=== PATIENT | male | born 1945 | race Caucasian/White ===

== ENCOUNTER 2018-09-28 10:42 | Observation (INO) | payer MEDICARE ==
[~2018-09-28] VITALS: Ht 175.3 cm; Wt 96.8 kg
[~2018-09-28 10:42] MED LIST: AMBIEN10 MG PO; ASPIRIN325 MG PO; ASPIRIN81 MG PO; CEFDINIR300 MG PO; CELEBREX200 MG PO; DIOVAN80 MG PO; LOSARTAN POTAS100 MG PO; MELOXICAM7.5 MG PO; RANOLAZINE PO; SIMVASTATIN PO; Z.0.LEVAQUIN500 MG PO; Z.0.PLAVIX75 MG PO; Z.1.METFORMIN HCL100 PO; [UNRECOGNIZED DRUG - OTHER] PO
[2018-09-28] MEDS ORDERED: METHYLPREDNISOLONE SOD SUCC 125 MG/2ML VIAL IV ONE (11:00)
[2018-09-28] MEDS ORDERED: ALBUTEROL/IPRATROPIUM 3 ML NEB NEB ONE (11:00)
[2018-09-28] MEDS ORDERED: ASPIRIN 325 MG TAB PO ONE (11:15)
[2018-09-28 11:18] LABS: BASOPHILS % 0.4 % (0.0-1.0); EOSINOPHILS # (AUTO) 0.1 (0.0-0.4); EOSINOPHILS % 1.2 % (0.0-6.0); HEMATOCRIT 36.3 % (38.2-49.6); HEMOGLOBIN 11.8 g/dL (14.0-18.0); LYMPHOCYTES # (AUTO) 1.6 (1.0-3.2); LYMPHOCYTES % 16.5 % (18.0-39.1); MEAN CORPUSCULAR HEMOGLOBIN 29.9 pg (28-32); MEAN CORPUSCULAR HGB CONC 32.5 g/dL (31-35); MEAN CORPUSCULAR VOLUME 92.1 fL (81-99); MONOCYTES # (AUTO) 0.8 (0.2-0.8); MONOCYTES % 8.5 % (4.4-11.3); NEUTROPHILS # (AUTO) 7.1 (2.1-6.9); PLATELET COUNT 242 x10e3/uL (140-360); RED BLOOD COUNT 3.94 x10e6/uL (4.3-5.7); RED CELL DISTRIBUTION WIDTH 12.9 % (11.7-14.4)
[2018-09-28] MEDS: NITROGLYCERIN 0.4 MG SUBL SL PRN ×2 (11:18→11:23)
[2018-09-28 11:30] LABS: INR 0.88; PROTHROMBIN TIME 12.8 seconds (11.9-14.5)
[2018-09-28 11:34] LABS: ALANINE AMINOTRANSFERASE 11 IU/L (0-55); ALBUMIN 3.9 g/dL (3.5-5.0); ALBUMIN/GLOBULIN RATIO 1.1 (0.8-2.0); ALKALINE PHOSPHATASE 61 IU/L (40-150); ANION GAP 13.9 mmol/L (8-16); BLOOD UREA NITROGEN 19 mg/dL (7-26); BUN/CREATININE RATIO 12 (6-25); CALCIUM 9.1 mg/dL (8.4-10.2); CARBON DIOXIDE 25 mmol/L (22-29); CHLORIDE 101 mmol/L (98-107); CREATINE KINASE 30 IU/L (30-200); CREATININE, SERUM 1.53 mg/dL (0.72-1.25); EST GLOMERULAR FILTRATION RATE 45 ML/MIN (60-); GLUCOSE 105 mg/dL (74-118); POTASSIUM 4.9 mmol/L (3.5-5.1); SODIUM 135 mmol/L (136-145)
--- NOTE | 2018-09-28 12:09 | Diagnostic Imaging Report ---
Examination: Single AP view of the chest. COMPARISON: AP chest 04/11/2014 INDICATION: Chest pain, shortness of breath, radiation to arm and neck for 2 days IMPRESSION: 1. Lines and Tubes: None 2. Lungs are grossly clear. No consolidation or effusion. 3. Cardiomediastinal silhouette is normal. Pulmonary vasculature is normal. 4. No acute bony abnormalities. Signed by: Dr. Vipin Phillips M.D. on 09/28/2018 12:06 PM
[2018-09-28] MEDS ORDERED: ALBUTEROL/IPRATROPIUM 3 ML NEB NEB PRN (15:30)
[2018-09-28] MEDS ORDERED: NITROGLYCERIN 0.4 MG SUBL SL PRN (15:30)
--- NOTE | 2018-09-28 16:09 | NUR ---
PT MOVED TO HOSP BED AT 1605
--- OUTSIDE RECORDS SUMMARY | 2018-09-28 16:38 | XMS REPORT ---
Author Author [facility] Address Unknown Phone Unavailable Care Team Providers Care Wood Model Maker Name Role Phone Sushil CALDWELL Unavailable Unavailable Problems This patient has no known problems. Allergies, Adverse Reactions, Alerts This patient has no known allergies or adverse reactions. Medications This patient has no known medications. Results Test Description Test Time Test Comments Text Results Atomic Results Result Comments CHEST SINGLE (PORTABLE) 2018-09-28 12:05:00 [place] [id number] Patient Name: JODEE DAY MR #: [id number] : 1945 Age/Sex: 73/M Req #: [id number] Adm Physician: Ordered by: BALJINDER HUMMEL PELLETISING EXTRUDER OPERATOR Report #: [id number] Location: ER Room/Bed: Procedure: [id number] DX/CHEST SINGLE (PORTABLE) Exam Date: 09/28/18 Exam Time: 1145 REPORT STATUS: Signed Examination: Single AP view of the chest. CHARLINE RISON: AP chest 04/11/2014 INDICATION: Chest pain, shortness of breath, radiation to arm and neck for 2 days IMPRESSION: 1. Lines and Tubes: None 2. Lungs are grossly clear. No consolidation or effusion. 3. Cardiomediastinal silhouette is normal. Pulmonary vasculature is normal. 4. No acute bony abnormalities. Signed by: Dr. Benito Phillips M.D. on 09/28/2018 12:06 PM Dictated By: BENITO PHILLIPS MD 05 Transcribed By: BAKARI on 09/28/181205 COPY TO: BALJINDER HUMMEL NP
[2018-09-28] MEDS ORDERED: ZOLPIDEM TARTRATE 10 MG TAB PO PRN (17:30)
[2018-09-28] MEDS ORDERED: HYDROCODONE/APAP 5MG-325MG TAB PO PRN (17:30)
[2018-09-28 17:42] LABS: AMYLASE 123 U/L (25-125); LIPASE 30 U/L (8-78)
[2018-09-28] MEDS ORDERED: METHYLPREDNISOLONE SOD SUCC 40 MG/ML VIAL IV SCH (18:00)
--- NOTE | 2018-09-28 19:34 | History and Physical ---
CHIEF COMPLAINT: Epigastric and chest pain. HISTORY OF PRESENT ILLNESS: The patient has a history of COPD and coronary artery disease. He had a cardiac catheterization with a stent placement about 2 years ago. He also takes Ranexa on a regular basis. He came to the emergency department complaining of intermittent left lower chest pain over the past 2 days. He notes it was relieved with sublingual nitroglycerin in the emergency department. He also notes some epigastric pain, but denies any nausea or vomiting. He denies any diarrhea. There is no fever. PAST SURGICAL HISTORY: 1. Status post knee replacement. 2. Status post hand surgery. 3. Status post coronary artery stent placement. PAST MEDICAL HISTORY: 1. History of COPD. 2. History of hypertension. 3. History of diabetes, does not require insulin. SOCIAL HISTORY: The patient quit smoking. He is not an active drinker. FAMILY HISTORY: Family history is significant for hypertension and diabetes. REVIEW OF SYSTEMS: The patient has no history of fevers. He is not having any headache. He has no neck pain. He does note some intermittent chest pain. He denies dyspnea. He has no cough. He does have some abdominal pain. There is no nausea or vomiting. There is no leg edema. He has no focal neurological complaints. PHYSICAL EXAMINATION: VITAL SIGNS: The patient is afebrile. The blood pressure is 141/73 and the pulse is 86. HEENT: Shows no facial swelling or erythema. The nasal mucosa is normal. The oropharynx is normal. LYMPHATIC: Shows no submandibular, cervical, or supraclavicular adenopathy. NECK: Shows no JVD or thyromegaly. CARDIAC: Reveals a regular rate and rhythm with a normal S1 and S2. There are no murmurs or rubs. CHEST: Auscultation of lungs reveals clear breath sounds bilaterally. There is no wheezing. ABDOMEN: Tender in the epigastric area. There is also some tenderness in the left upper quadrant. There is no right upper quadrant tenderness. There is no rebound or guarding. EXTREMITIES: There is no leg edema. NEUROLOGICAL: Shows no focal abnormalities. LABORATORY DATA: White blood cell count is 9.7 and the hemoglobin is 11.8. The platelet count is 242,000. The BUN to creatinine ratio is 19 to 1.5, and the magnesium is 2.4. RADIOGRAPHIC DATA: Chest x-ray shows no active disease. IMPRESSION: 1. Chest/epigastric pain. 2. History of coronary artery disease requiring a prior stent placement. 3. History of chronic obstructive pulmonary disease. 4. Diabetes. 5. Chronic renal failure, stage 3. PLAN: 1. The patient will be monitored on telemetry with serial cardiac enzymes and EKGs. 2. Echocardiogram and cardiology consultation. 3. Amylase and lipase. 4. Abdominal ultrasound. 5. GI consultation. Job#: [id number]
[2018-09-28 19:47] LABS: CREATINE KINASE MB 2.2 ng/mL (0-5.0)
[2018-09-28] MEDS ORDERED: GABAPENTIN100 MG PO (20:27)
[2018-09-28 21:00] VITALS: BP 161/78
[2018-09-28 21:20] VITALS: BP 161/78
--- NOTE | 2018-09-28 21:20 | NUR ---
received pt from ER to room 210, AAOx4, resp even and unlabored, no c/o of pain or discomfort, pt ambulating in room by self with steady gait, skin intact, able to verbalize needs, bed in lowest and locked position with call light in reach, tele box #[id number] with pt and pt running ST
[2018-09-29 00:20] VITALS: BP 144/68
[2018-09-29 05:15] VITALS: BP 127/69
[2018-09-29 05:44] LABS: CREATINE KINASE MB 2.5 ng/mL (0-5.0)
--- NOTE | 2018-09-29 07:05 | NUR ---
RCD PT AT BED PT IS ALERT AND ORIENTED PT RESTING ON BED NO SIGNS OF ANY DISTRESS NOTED IV PATENT BED LOW AND LOCKED CALL LIGHT IN REACH
[2018-09-29 07:50] VITALS: BP 140/66
[2018-09-29 08:00] VITALS: BP 140/66
[2018-09-29] MEDS: ASPIRIN 81 MG CHEW TAB PO SCH ×2 (08:20→08:55)
[2018-09-29] MEDS: LOSARTAN POTASSIUM 100 MG TAB PO SCH ×2 (08:20→08:55)
[2018-09-29] MEDS ORDERED: [UNRECOGNIZED DRUG - OTHER] PO SCH (09:00)
[2018-09-29] MEDS ORDERED: METFORMIN HCL 500 MG TAB CR PO SCH (09:00)
[2018-09-29] MEDS ORDERED: METOPROLOL SUCCINATE 25 MG TAB XL PO SCH (09:00)
[2018-09-29] MEDS ORDERED: ASPIRIN 325 MG TAB EC PO SCH (09:00)
[2018-09-29] MEDS ORDERED: METFORMIN HCL 500 MG TAB PO SCH (09:00)
[2018-09-29] MEDS ORDERED: NON-FORMULARY MEDICATION (Metformin Hcl 1,000 MG) PO SCH (09:00)
[2018-09-29] MEDS ORDERED: ISOSORBIDE MONONITRATE 30 MG TAB CR PO SCH (09:30)
--- NOTE | 2018-09-29 09:58 | Consultation ---
DATE OF CONSULTATION: September 28, 2018 REASON FOR CONSULTATION: Chest pain. CONSULTING PHYSICIAN: Dr. Rogers. HPI: This is a pleasant 73-year-old male that presented with chest pain. According to the patient, for 1 week he has been having severe left-sided chest pain on a scale of 9/10 that radiated to his left arm and left lower extremity. He stated that the pain got worse within the last 2 days that he decided to come in to the emergency room for further evaluation. He also stated the chest pain was accompanied with shortness of breath and he had quit smoking 5 years ago. He has a history of severe CAD with total occlusion of the right coronary artery in 2012 cardiac cath that was done by Dr. Fortino Blankenship. He was scheduled for outpatient peripheral angiogram at [facility] which he did not show up. He stated he took Ranexa and gabapentin and the pain went away. He denied any palpitations, any diaphoresis, any headache, nausea or vomiting. Troponin x3 was negative. EKG showed normal sinus rhythm with no ST abnormalities. Chest x-ray showed no acute bony abnormalities. Lungs are grossly clear. No consolidation or effusion. PAST MEDICAL HISTORY: Severe CAD, hypertension, diabetes, PAD, COPD, and CKD. PAST SURGICAL HISTORY: Left hand surgery, left knee surgery, and cardiac catheterization with stent placement. FAMILY HISTORY: Positive for hypertension. SOCIAL HISTORY: He used to smoke, but he quit smoking 5 years ago and he lives at home with family. MEDICATIONS: He was on aspirin, losartan, metformin, Ranexa, and gabapentin. ALLERGIES: HE IS NOT ALLERGIC TO ANY MEDICATION. REVIEW OF SYSTEMS: Negative except those mentioned above. PHYSICAL EXAMINATION VITAL SIGNS: Temperature 98, heart rate 85, blood pressure 127/69, respirations 20, oxygen saturation 97% on room air. GENERAL: He is awake, alert, and oriented x3. HEENT: Mucous membranes moist. NECK: Supple. LUNGS: Bilateral clear to auscultation. CARDIOVASCULAR: S1, S2 present. ABDOMEN: Soft. NEUROLOGIC: Intact. EXTREMITIES: Bilateral lower with no edema. LABS: Sodium 135, potassium 4.9, chloride 101, CO2 25, BUN 19, creatinine 1.53, glucose 105. White blood cells 9.69, hemoglobin 11.8, hematocrit 36.3, platelet 242. PT 12.8, PTT 29.5, INR 0.88. IMPRESSIONS 1. Chest pain. 2. Severe coronary artery disease. 3. Epigastric pain. 4. Diabetes. 5. Hypertension. 6. History of chronic obstructive pulmonary disease. 7. History of cardiac stent placement. ASSESSMENT PLAN 1. Will get an echocardiogram to reassess the LV and the valve function. 2. Troponin x3 was negative. 3. He needs outpatient cardiac catheterization and peripheral angiogram. 4. Will continue his home medications. 5. He has total occlusion of the RCA and needs intervention. 6. He follows up with Dr. Fortino Blankenship. Further cardiac workup pending clinical course. Thank you for this consultation. Dictated by Dick Fierro NP Job#: [id number] ALEXANDRA
[2018-09-29] MEDS ORDERED: RANOLAZINE 500 MG TABSR PO SCH (11:30)
[2018-09-29 11:49] VITALS: BP 130/60
--- NOTE | 2018-09-29 13:35 | NUR ---
PT WENT HOME IN SAFE CONDITION WITH HIS GIRL FRIEND
== END 2018-09-29 13:35 | disposition home or self-care (01) ==
LOC: ER 10:42 → ERHOLD 16:35 → MED/SURG2 20:49
PROVIDERS: ADMIT Internal Medicine Critical Care Medicine; ATTEND Internal Medicine Critical Care Medicine
DX: R07.9 Chest pain, unspecified (principal); I25.10 Atherosclerotic heart disease of native coronary artery without angina pectoris; I50.9 Heart failure, unspecified; Z95.5 Presence of coronary angioplasty implant and graft; Z87.891 Personal history of nicotine dependence; Z77.22 Contact with and (suspected) exposure to environmental tobacco smoke (acute) (chronic); Z83.3 Family history of diabetes mellitus; Z82.49 Family history of ischemic heart disease and other diseases of the circulatory system; J44.9 Chronic obstructive pulmonary disease, unspecified; E11.22 Type 2 diabetes mellitus with diabetic chronic kidney disease; I13.0 Hypertensive heart and chronic kidney disease with heart failure and stage 1 through stage 4 chronic kidney disease, or unspecified chronic kidney disease; N18.3 Chronic kidney disease, stage 3 (moderate); R10.13 Epigastric pain; Z79.84 Long term (current) use of oral hypoglycemic drugs
CPT/HCPCS: 36415 ×2; 71045; 80053; 80061; 82150; 82550 ×2; 82553 ×2; 82948 ×2; 83690; 83735; 83880; 84484 ×2; 85025; 85610; 85730; 93005; 93306; 94640; 99284; G0378 ×2; J2930

== ENCOUNTER → 2018-10-16 | Outpatient (CLI) | payer MEDICARE ==
[~2018-10-16] MED LIST changes: +GABAPENTIN100 MG PO; +IOPAMIDOL 370 MG/ML 200 ML INFUS..BTL INJ ONE; +SODIUM CHLORIDE 0.9% 100 ML 100 ML ONE; +SODIUM CHLORIDE 0.9% 500ML 500 ML ONE
[2018-10-16 09:07] LABS: CREATININE, SERUM 1.35 mg/dL (0.72-1.25)
--- NOTE | 2018-10-16 14:03 | Diagnostic Imaging Report ---
History: Left carotid blockage Comparison studies:MRA neck 04/11/2014 Technique: Axial images were obtained from the thoracic inlet. 3-D reconstructions and maximum intensity projection reformats were performed. Coronal and sagittal images reconstructed from the axial data. Intravenous contrast: 100 cc of Omnipaque 300. Dose modulation, iterative reconstruction, and/or weight based adjustment of the mA/kV was utilized to reduce the radiation dose to as low as reasonably achievable. Findings: Percentage of stenosis will be based on the NASCET criteria. Aortic arch and major vessels: Patent. No abnormalities. Common carotid arteries: Patent. No abnormalities. Right internal carotid artery: Patent. Nonstenotic atherosclerotic calcifications of the bulb. Left internal carotid artery: Patent. Calcified and noncalcified atherosclerotic plaque at the bulb results in 40-60% stenosis. Atherosclerotic calcifications of the carotid siphons without hemodynamically significant stenosis. Right vertebral artery: Patent. No abnormalities. Left vertebral artery: Patent. No abnormalities. Incidentally noted ossification of the posterior longitudinal ligament results in moderate canal stenosis at C2-3 and severe stenosis C6-7. IMPRESSION: Moderate stenosis at the left carotid bulb. 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 . Signed by: DR Jony Mendoza M.D. on 10/16/2018 1:59 PM
== END ==
LOC: CT 07:59
PROVIDERS: ATTEND Internal Medicine Cardiovascular Disease
DX: I65.22 Occlusion and stenosis of left carotid artery (principal)
CPT/HCPCS: 36415; 70498; 82565; 84520; J7040; Q9967

== ENCOUNTER → 2019-04-20 | Day surgery (SDC) | payer MEDICARE ==
--- NOTE | 2019-04-18 12:30 | NUR ---
/30Spoke with Cecilia at Dr. Blankenship's office and verified EKG that was faxed over was performed on 04/17/19.
[2019-04-18 12:55] LABS: BASOPHILS % 0.5 % (0.0-1.0); EOSINOPHILS # (AUTO) 0.2 (0.0-0.4); HEMATOCRIT 35.3 % (38.2-49.6); HEMOGLOBIN 11.1 g/dL (14.0-18.0); LYMPHOCYTES # (AUTO) 1.9 (1.0-3.2); MEAN CORPUSCULAR HEMOGLOBIN 28.7 pg (28-32); MEAN CORPUSCULAR HGB CONC 31.4 g/dL (31-35); MEAN CORPUSCULAR VOLUME 91.2 fL (81-99); MONOCYTES # (AUTO) 0.6 (0.2-0.8); MONOCYTES % 7.6 % (4.4-11.3); NEUTROPHILS # (AUTO) 5.7 (2.1-6.9); NEUTROPHILS % 67.5 % (38.7-80.0); PLATELET COUNT 284 x10e3/uL (140-360); RED BLOOD COUNT 3.87 x10e6/uL (4.3-5.7); RED CELL DISTRIBUTION WIDTH 13.3 % (11.7-14.4)
[2019-04-18 13:05] LABS: INR 0.87; PROTHROMBIN TIME 12.3 seconds (11.9-14.5)
[2019-04-18 13:06] LABS: PARTIAL THROMBOPLASTIN TIME 29.8 seconds (23.8-35.5)
[2019-04-18 13:15] LABS: ALBUMIN 3.6 g/dL (3.5-5.0); ANION GAP 15.3 mmol/L (8-16); CALCIUM 9.3 mg/dL (8.4-10.2); CREATININE, SERUM 1.3 mg/dL (0.72-1.25)
[2019-04-18 13:16] LABS: POTASSIUM 5.3 mmol/L (3.5-5.1)
--- NOTE | 2019-04-18 13:17 | Diagnostic Imaging Report ---
EXAMINATION: CHEST 2 VIEWS INDICATION: Pre-operative COMPARISON: Chest radiograph of 09/28/2018 FINDINGS: LINES/TUBES:None LUNGS:The lungs are well-inflated. No focal consolidation or pulmonary edema. PLEURA:No pleural effusion or pneumothorax. MEDIASTINUM:The cardiomediastinal silhouette appears normal in size and shape. BONES/SOFT TISSUES:No acute osseous injury. Degenerative changes of the visualized spine. ABDOMEN:No free air under the diaphragm. IMPRESSION: No focal pneumonia or pulmonary edema. Signed by: Michelle Nielsen MD on 04/18/2019 1:13 PM
--- NOTE | 2019-04-18 14:14 | NUR ---
Notified Xin Peña RN of potassium 5.3, creatinine 1.3, estimated GFR 54. Xin Peña RN stated to repeat BMP on 04/20/19 before procedure and to infuse normal saline IV at 100ml/hr for 4-6 hours post procedure. Verified and read back order. verbalized understanding.
[2019-04-20] VITALS (15 sets, daily range): BP systolic 131–179; BP diastolic 84–101
[~2019-04-20] VITALS: Ht 175.3 cm; Wt 85.7 kg
[~2019-04-20] MED LIST changes: +ATORVASTATIN CA20 MG PO; +FENTANYL CITRATE/PF 100MCG/2 ML INJ ONE; +HEPARIN SOD/SOD CHLORIDE 2,000 ML ONE; +HYDROCODONE/APAP 5MG-325MG TAB ONE; +IOPAMIDOL 300MG/ML 100 ML INFUS..BTL IV ONE; -IOPAMIDOL 370 MG/ML 200 ML INFUS..BTL INJ ONE; +LIDOCAINE HCL 2% LOCAL 20 ML VIAL ONE; +MIDAZOLAM HCL 2 MG/2 ML VIAL ONE; +OMEPRAZOLE40 MG PO; +RANEXA1000 MG PO; -SODIUM CHLORIDE 0.9% 100 ML 100 ML ONE; +SODIUM CHLORIDE 0.9% 1000ML 1,000 ML ONE; -SODIUM CHLORIDE 0.9% 500ML 500 ML ONE
[2019-04-20 09:54] LABS: ANION GAP 13.4 mmol/L (8-16); BLOOD UREA NITROGEN 16 mg/dL (7-26); BUN/CREATININE RATIO 14 (6-25); CALCIUM 9.1 mg/dL (8.4-10.2); CARBON DIOXIDE 24 mmol/L (22-29); CHLORIDE 105 mmol/L (98-107); CREATININE, SERUM 1.18 mg/dL (0.72-1.25); EST GLOMERULAR FILTRATION RATE > 60 ML/MIN (60-); GLUCOSE 111 mg/dL (74-118); POTASSIUM 4.4 mmol/L (3.5-5.1); SODIUM 138 mmol/L (136-145)
--- NOTE | 2019-04-20 11:16 | NUR ---
1116 bedside report received from [place] [facility]. Identifier x2 Peripheral Angio. no fix Dr Blankenship. Received pt bilateral sheaths in place, groin sites left groin antegrade / Rt groin sheath . construction or leak gang laborer technologists arrived ( Sal/Shikha) at handoff. No current oozing or hematomas.Alert oriented and appropriate, PERRLA, respirations even and unlabored to room air. Pulses x4 extremities equal and strong. Pedal pulses PT/DP x4.Cap fill brisk < 3 sec. Skin warm and dry integrity appears D/I. IV 20g to hand. Presents healthy w/o s/s of infiltration or complaint. Abdomen soft and supple. pt offered toileting, denies need to urinate or defecate. No personal affects with patient. No family at bedside. Pt will call for ride. Pt verbalizes understanding of POC. Currently w/o complaint of pain or need. 1120a/1122a respectfully performing sheath pulls Rn at bedside. PPx4 present.Stasis achieved with Rt femoral pull 14min compression by Sal CL technologist and 17min hold [place] diagnostic technologist No s/s oozing hematoma 4x4 [address] T[address]erm [address] bilateral PPx4 palpable pt for dc at 3pm. POC discussed with pt and agrees of flat time and will reach out to tide at 2pm. 1245pm pt voicing wanting to go AMA Head nurse spoke with pt and agreed to stay for allotted bedrest for safety. No gross issues pain pallor pressure or dysrhythmia. ds/rn
--- NOTE | 2019-04-20 12:11 | NUR ---
Order received for [place] 5/325 po for c/o generalized pain. Pt tolerated well. Will continue to monitor.
--- NOTE | 2019-04-20 13:00 | NUR ---
1500pm Pt meets DC criteria. Rt and left groin sheath sites assessed for s/s of complication and presence of hematoma. warm, dry, no discolor, and pulses present. IV removed from hand.. Distal tip appears intact. VS WNL. Pt denies pain, sob, or need at this time. Ride arrived Review of discharge paperwork and follow up instructions. verbalized understanding. Pt to wheelchair and transported to front of hospital. Transferred to private vehicle under own strength w/o incident with DC paperwork in hand. - ds/rn
--- NOTE | 2019-04-20 15:35 | Operative Report ---
DATE OF PROCEDURE: SURGEON: Fortino Blankenship MD PROCEDURE: Peripheral angiogram of the third order in the left leg. INDICATION: Claudication and peripheral vascular disease. COMPLICATIONS: None. ANESTHESIA: Versed, fentanyl and lidocaine. TECHNIQUE: The right groin was draped and prepped in the usual fashion. The area was anesthetized with lidocaine. Standard Seldinger technique was used to place a 6-Armenian sheath into the right femoral artery without difficulty. An Omni Flush catheter was used to obtain an abdominal aortogram. An Advantage guidewire was then positioned from the right common femoral artery to the left external iliac artery. The Omni Flush catheter was exchanged for a [place] catheter. Selective injections of the left leg were obtained using the [place] catheter. There were no complications. RESULTS: As follows: 1. The abdominal aorta had aneurysmal dilatation infrarenally. Both the right and the left common iliac artery were also ectatic. 2. The left external iliac artery had some mild nonobstructive disease. The left internal iliac artery also had some nonobstructive disease. 3. The left profunda femoral artery was patent, but the left superficial femoral artery was diffusely diseased in its mid and distal portion up to 90%. 4. The popliteal artery on the left was patent, but the trifurcation was diffusely diseased. The anterior tibial artery was 100% occluded. The peroneal artery was 100% occluded, but the posterior tibial artery extended down to the foot. The patient had one vessel runoff. CONCLUSION: The patient has severe disease in the superficial femoral artery on the left. We will discuss options for atherectomy using an antegrade approach with the patient. Fortino Blankenship MD H/MODL /[id number]
== END | disposition home or self-care (01) ==
LOC: CATH LAB 07:57
PROVIDERS: ATTEND Internal Medicine Cardiovascular Disease
DX: I70.213 Atherosclerosis of native arteries of extremities with intermittent claudication, bilateral legs (principal); I25.110 Atherosclerotic heart disease of native coronary artery with unstable angina pectoris; E11.9 Type 2 diabetes mellitus without complications; Z79.82 Long term (current) use of aspirin; Z79.84 Long term (current) use of oral hypoglycemic drugs; Z95.5 Presence of coronary angioplasty implant and graft; Z87.891 Personal history of nicotine dependence; Z82.49 Family history of ischemic heart disease and other diseases of the circulatory system
CPT/HCPCS: 36247; 36415 ×2; 71046; 75625; 75710; 80048; 80053; 85025; 85610; 85730; C1769 ×2; C1887; J2001; J2250; J3010; J7030; Q9967

== ENCOUNTER → 2019-05-01 | Outpatient (CLI) | payer MEDICARE ==
[~2019-05-01] MED LIST changes: -FENTANYL CITRATE/PF 100MCG/2 ML INJ ONE; -HEPARIN SOD/SOD CHLORIDE 2,000 ML ONE; -HYDROCODONE/APAP 5MG-325MG TAB ONE; -IOPAMIDOL 300MG/ML 100 ML INFUS..BTL IV ONE; +IOPAMIDOL 370 MG/ML 200 ML INFUS..BTL INJ ONE; -LIDOCAINE HCL 2% LOCAL 20 ML VIAL ONE; -MIDAZOLAM HCL 2 MG/2 ML VIAL ONE; +SODIUM CHLORIDE 0.9% 100 ML 100 ML ONE; -SODIUM CHLORIDE 0.9% 1000ML 1,000 ML ONE
--- NOTE | 2019-05-01 14:22 | Diagnostic Imaging Report ---
CT ABDOMEN/PELVIS WITH CTA RUNOFF PROTOCOL WITH IV CONTRAST. 3D post-processing of the images was performed, and the post-processed images were used in interpretation. COMPARISON: none available. TECHNIQUE: Abdomen and pelvis were scanned utilizing a multidetector helical scanner from the lung base to the toes for runoff after administration of IV contrast. Coronal and sagittal reformations were obtained. CTA with runoff protocol was performed. Scan was performed when during arterial phase. IV CONTRAST: 100mL of Isovue 370 ORAL CONTRAST: None COMPLICATIONS: None RADIATION DOSE: Total DLP: 842.3 mGy*cm Dose modulation, iterative reconstruction, and/or weight based adjustment of the mA/kV was utilized to reduce the radiation dose to as low as reasonably achievable. FINDINGS: VESSELS: There are moderate calcified and noncalcified atherosclerotic plaques in the aorta and its major branches. There is no evidence of a flap within the aorta to suggest a dissection. There is an infrarenal abdominal aortic aneurysm measuring up to 3.7 x 4.0 cm in widest short axis dimension. There is extensive mural thrombus formation. The right common iliac artery is aneurysmal, measuring up to 2.0 cm. Ectatic left common iliac artery measures up to 1.6 cm. The celiac artery, superior mesenteric artery, and inferior mesenteric artery are patent. There is a single right renal artery and a single left renal artery, both of which are patent. Right lower extremity: Multifocal calcified and noncalcified atherosclerotic plaque involves the right common femoral artery resulting in mild luminal narrowing. The proximal superficial femoral artery is patent. Focal plaque at the mid SFA results in moderate luminal narrowing. The profunda femoris is patent. Multifocal atherosclerotic plaque in the popliteal artery results in mild luminal narrowing. There is poor contrast opacification of the tibial vessels and no meaningful assessment can be made of the patency of runoff vessels. Scattered calcified plaque involves the course of the anterior tibial and peroneal arteries. Left lower extremity: Focal calcified plaque at the left common femoral artery just proximal to the femoral bifurcation results in moderate luminal narrowing. Multifocal calcified plaque at the mid left superficial femoral artery results in multiple areas of moderate stenosis and 1 area of critical stenosis. Multifocal calcified and noncalcified plaque of the left popliteal artery with mild luminal narrowing. The distal left popliteal artery and tibial vessels are not well opacified, limiting evaluation of patency of the runoff vessels. Multifocal calcifications involve the peroneal artery. LUNG BASE: No focal consolidation. HEPATOBILIARY: No focal hepatic lesions. No biliary ductal dilatation. There is vicarious secretion of contrast material in the gallbladder. SPLEEN: No splenomegaly. PANCREAS: No focal masses or ductal dilatation. ADRENALS: 1 cm right adrenal myelolipoma. No left adrenal nodules. KIDNEYS/URETERS: Numerous simple cysts throughout both kidneys, the largest of which measure approximately 1.5 cm on both sides. No renal calculi or hydronephrosis. PELVIC ORGANS/BLADDER: Unremarkable. PERITONEUM / RETROPERITONEUM: No free air or fluid. LYMPH NODES: Prominent bilateral inguinal lymph nodes not meeting size criteria for lymphadenopathy. No retroperitoneal lymphadenopathy. GI TRACT: Prominent sigmoid and descending colon diverticulosis. No CT evidence of diverticulitis. No abnormal bowel wall thickening. No bowel obstruction. Normal appendix. BONES AND SOFT TISSUES: No acute osseous injury. Mild diffuse osteopenia. Degenerative changes of the visualized spine. Rate 1 retrolisthesis at L3-4. IMPRESSION: Infrarenal abdominal aortic aneurysm measuring up to 3.7 x 4.0 cm maximum short axis dimension with mural thrombus. 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 Ectatic left common iliac artery to 1.6 cm. Multifocal calcified atherosclerotic plaque involving both lower extremities. Mild narrowing of the right common femoral artery, moderate narrowing of the right SFA, and mild narrowing of the right popliteal artery. Moderate focal narrowing of the left common femoral artery, multifocal narrowing of the left SFA with multiple areas of moderate stenosis and one area of critical stenosis. Mild narrowing of the left popliteal artery. Distal popliteal and infrapopliteal vessels are not well opacified bilaterally, limiting evaluation of tibial runoff vessels. Signed by: Michelle Nielsen MD on 05/01/2019 2:19 PM
--- NOTE | 2019-05-01 15:03 | Diagnostic Imaging Report ---
MRI SPINE LUMBAR WO HISTORY: Low back and bilateral leg pain COMPARISON: CT of the abdomen and pelvis 05/01/2019 TECHNIQUE: Sagittal T1, sagittal T2, sagittal STIR, axial T2, axial T2 fat-sat, and axial proton density weighted images of the lumbar spine were obtained without contrast. Motion artifacts obscure some details. DISCUSSION: Number of non-rib bearing lumbar vertebral bodies: 5. Alignment: Normal lordosis. No scoliosis. Vertebrae: No fractures, infection or neoplasm. Conus medullaris: Normal, ends at L1-L2. Cauda equina: No masses or arachnoiditis. Posterior paraspinal muscles: Well preserved. No signal abnormalities. Soft tissues: Bilateral multicystic kidneys are present. Mild multilevel disc degeneration is most prominent at L3-L4 and L4-L5. There are nonspecific minimal inflammatory endplate changes at L4-L5. Multilevel mild prominent marginal osteophytes with relatively preserved disc spaces suggest diffuse idiopathic skeletal hyperostosis. T12-L1: Patent canal and foramina. L1-L2: Patent canal and foramina. L2-L3: Minimal disc bulge without significant canal or foraminal stenosis. L3-L4: Mild canal stenosis due to disc bulge and ligamentum flavum thickening. No significant foraminal stenosis. L4-L5: Mild to moderate canal stenosis due to disc bulge and ligamentum flavum thickening. Both lateral recesses are slightly effaced. Mild to moderate bilateral foraminal stenoses due to disc bulge and facet arthrosis. L5-S1: Mild bilateral foraminal stenoses due to disc bulge and facet arthrosis. No significant canal stenosis. IMPRESSION: 1. Mild multilevel disc degeneration, most prominent at L3-L4 and L4-L5, with diffuse idiopathic skeletal hyperostosis. Nonspecific minimal inflammatory endplate changes at L4-L5. 2. Mild to moderate L4-L5 and mild L3-L4 degenerative canal stenoses. 3. Mild to moderate bilateral L4-L5 degenerative foraminal stenoses. Signed by: Dr. Doug Hightower M.D. on 05/01/2019 3:00 PM
== END ==
LOC: MRI 09:57
PROVIDERS: ATTEND Internal Medicine Cardiovascular Disease
DX: I70.243 Atherosclerosis of native arteries of left leg with ulceration of ankle (principal); M54.5 Low back pain
CPT/HCPCS: 72148; 75635; Q9967

== ENCOUNTER → 2019-05-04 | Day surgery (SDC) | payer MEDICARE ==
[2019-05-02 12:21] LABS: BASOPHILS # (AUTO) 0.1 (0.0-0.1); BASOPHILS % 0.6 % (0.0-1.0); EOSINOPHILS # (AUTO) 0.2 (0.0-0.4); EOSINOPHILS % 2.1 % (0.0-6.0); HEMATOCRIT 33.9 % (38.2-49.6); HEMOGLOBIN 10.8 g/dL (14.0-18.0); LYMPHOCYTES # (AUTO) 2.1 (1.0-3.2); MEAN CORPUSCULAR HEMOGLOBIN 29.1 pg (28-32); MEAN CORPUSCULAR HGB CONC 31.9 g/dL (31-35); MEAN CORPUSCULAR VOLUME 91.4 fL (81-99); MONOCYTES # (AUTO) 0.9 (0.2-0.8); MONOCYTES % 10.2 % (4.4-11.3); NEUTROPHILS # (AUTO) 5.5 (2.1-6.9); NEUTROPHILS % 62.5 % (38.7-80.0); PLATELET COUNT 274 x10e3/uL (140-360); RED BLOOD COUNT 3.71 x10e6/uL (4.3-5.7); RED CELL DISTRIBUTION WIDTH 13.4 % (11.7-14.4)
[2019-05-02 12:35] LABS: INR 0.9; PROTHROMBIN TIME 12.6 seconds (11.9-14.5)
[2019-05-02 12:41] LABS: ALBUMIN 3.6 g/dL (3.5-5.0); ALBUMIN/GLOBULIN RATIO 1.1 (0.8-2.0); ALKALINE PHOSPHATASE 56 IU/L (40-150); BLOOD UREA NITROGEN 16 mg/dL (7-26); BUN/CREATININE RATIO 11 (6-25); CALCIUM 8.8 mg/dL (8.4-10.2); CARBON DIOXIDE 29 mmol/L (22-29); CHLORIDE 100 mmol/L (98-107); CREATININE, SERUM 1.46 mg/dL (0.72-1.25); EST GLOMERULAR FILTRATION RATE 47 ML/MIN (60-); GLUCOSE 95 mg/dL (74-118); SODIUM 135 mmol/L (136-145)
[2019-05-02 12:55] LABS: ALANINE AMINOTRANSFERASE < 6 IU/L (0-55)
[~2019-05-04] VITALS: Ht 175.3 cm; Wt 82.6 kg
[2019-05-04] VITALS (22 sets, daily range): BP systolic 118–178; BP diastolic 70–99
[~2019-05-04] MED LIST changes: +FENTANYL CITRATE/PF 100MCG/2 ML INJ ONE; +HEPARIN SOD (PORCINE) 1000 UNIT/ML 30ML ONE; +HEPARIN SOD/SOD CHLORIDE 2,000 ML ONE; +IOPAMIDOL 300MG/ML 100 ML INFUS..BTL IV ONE; -IOPAMIDOL 370 MG/ML 200 ML INFUS..BTL INJ ONE; +LIDOCAINE HCL 2% LOCAL 20 ML VIAL ONE; +MIDAZOLAM HCL 2 MG/2 ML VIAL ONE; +MORPHINE SULFATE INJ 4 MG/ML INJ 1ML ONE; +NITROGLYCERIN/D5W 200 MCG/ML 250 ML ONE; -SODIUM CHLORIDE 0.9% 100 ML 100 ML ONE; +SODIUM CHLORIDE 0.9% 1000ML 1,000 ML ONE
--- NOTE | 2019-05-04 08:45 | NUR ---
0845 Bedside report received from RUT Pandya. Alert oriented and appropriate, PERRLA, respirations even and unlabored to room air. Pulses x4 entreaties equal and strong. Pedal pulses PT/DP x4. Cap fill brisk < 3 sec. left groin leg site intact NO oozing or hematoma. Skin warm and dry integrity appears IV 20g to left hand, presents healthy w/o s/s of infiltration or complaint. Abdomen soft and supple. pt offered toileting, denies need to urinate or defecate. No personal affects with patient. No Family. Pt verbalizes understanding of POC. HOB down no movement to left leg will pull sheath when act number is 180. Ketan person of contact for transportation home.(Son in law . Currently w/o complaint of pain or need. Pt aware will recheck act at 930 (830am ACT-239 in manager cath lab) rai/rut
--- NOTE | 2019-05-04 09:30 | NUR ---
0930 ACT resulted 196 recheck n 1hr ds/rn
--- NOTE | 2019-05-04 10:30 | NUR ---
1030 act 183 Mumtaz Lyn states ok to pull with 183 in 15minutes No gross issues pain,pallor,pressure or dysrhythmia. ds/rn
--- NOTE | 2019-05-04 10:45 | NUR ---
1045 04/28 lower back pain reached out to Dr Blankenship gave 4mg ivp Morphine with immediate relief noted. ds/rn
--- NOTE | 2019-05-04 10:53 | NUR ---
1053 Sheath pull with Don technologist at bedside RN Marion at beside. Is left retrograde pull for 15min hold and manual pressure NO gross issues pain pallor pressure or dysrhythmia.Meño 4x4 dressing and no hematoma noted. PP present. NO c/o covered with morphine 4mg ivp at 1045 denies back pain at this time. ds/rn
--- NOTE | 2019-05-04 11:08 | NUR ---
1108 sheath pull completed No gross issues pain pallor pressure or dysthymia. Vs stable and ekg Meño patch remain intact w/o hematoma or oozing . dc time 4pm Called Ketan at [phone] Son in law will arrive at 330pm for dc planning teaching ds/rn
--- NOTE | 2019-05-04 14:28 | Operative Report ---
DATE OF PROCEDURE: SURGEON: Fortino Blankenship MD PROCEDURES: 1. Percutaneous transluminal angioplasty and directional atherectomy of left superficial femoral artery. 2. Third-order peripheral angiogram. INDICATIONS: 1. Claudication. 2. Peripheral vascular disease. COMPLICATIONS: None. ANESTHESIA: Versed, fentanyl, and lidocaine. TECHNIQUE: Diagnostic angiogram had been done previously and there was a known long area of 90% stenosis in the mid and distal superficial femoral artery. The patient was draped and prepped in the usual manner. The patient was given Versed and fentanyl for sedation. The left groin was anesthetized with lidocaine. An anterior axis technique was used to selectively engage left common femoral artery. A 6-Kinyarwanda sheath was placed. The patient was bolused with heparin 8000 units. An Advantage wire was used to cross the area to 95% stenosis of the mid and distal left superficial femoral artery. The area was pre-dilated with a 6.0 x 150 mm balloon for 1 minute. A directional atherectomy device was used to remove the plaque from the stenosis. A drug-coated balloon 150 mm x 6 mm was then used to post dilate the stenosis up to 6 atmospheres for 3 minutes. There was a very good result with minimal residual stenosis. RESULTS: As follows: 1. The patient had a 90% to 95% diffuse eccentric stenosis in the mid and distal left superficial femoral artery. 2. The patient had only one vessel runoff with a patent posterior tibial artery. The peroneal artery and the anterior tibial artery were 100% occluded. CONCLUSION: Successful directional atherectomy and percutaneous transluminal angioplasty of left superficial femoral artery. Fortino Blankenship MD D[facility]/MOD[facility] /[id number]
--- NOTE | 2019-05-04 16:00 | NUR ---
1600 Pt meets DC criteria. assessed for s/s of complication and presence of hematoma. warm, dry, no discolor, and pulses present. IV removed from arm . Distal tip appears intact. VS WNL. Pt denies pain, sob, or need at this time. Ketan arrived. Review of discharge paperwork and follow up instructions. verbalized understanding. Pt to wheelchair and transported to front of hospital. Transferred to private vehicle under own strength w/o incident with DC paperwork in hand. - ds/rn
== END | disposition home or self-care (01) ==
LOC: CATH LAB 05:56
PROVIDERS: ATTEND Internal Medicine Cardiovascular Disease
DX: I70.213 Atherosclerosis of native arteries of extremities with intermittent claudication, bilateral legs (principal); I25.110 Atherosclerotic heart disease of native coronary artery with unstable angina pectoris; Z95.5 Presence of coronary angioplasty implant and graft; E11.9 Type 2 diabetes mellitus without complications; Z83.3 Family history of diabetes mellitus; Z82.49 Family history of ischemic heart disease and other diseases of the circulatory system; Z01.810 Encounter for preprocedural cardiovascular examination; Z01.812 Encounter for preprocedural laboratory examination; Z79.82 Long term (current) use of aspirin; Z79.84 Long term (current) use of oral hypoglycemic drugs
CPT/HCPCS: 36415; 37225; 75710; 80053; 85025; 85610; 85730; 93005; C1714; C1725; C1769 ×3; C1887; J1644; J2001; J2250; J3010; J7030; Q9967; 36247; C2623; J2270

== ENCOUNTER → 2019-08-23 | Outpatient (CLI) | payer MEDICARE ==
[~2019-08-23] MED LIST changes: -FENTANYL CITRATE/PF 100MCG/2 ML INJ ONE; -HEPARIN SOD (PORCINE) 1000 UNIT/ML 30ML ONE; -HEPARIN SOD/SOD CHLORIDE 2,000 ML ONE; -IOPAMIDOL 300MG/ML 100 ML INFUS..BTL IV ONE; +IOPAMIDOL 370 MG/ML 200 ML INFUS..BTL INJ ONE; -LIDOCAINE HCL 2% LOCAL 20 ML VIAL ONE; -MIDAZOLAM HCL 2 MG/2 ML VIAL ONE; -MORPHINE SULFATE INJ 4 MG/ML INJ 1ML ONE; -NITROGLYCERIN/D5W 200 MCG/ML 250 ML ONE; +SODIUM CHLORIDE 0.9% 100 ML ONE; -SODIUM CHLORIDE 0.9% 1000ML 1,000 ML ONE
[2019-08-23 08:22] LABS: CREATININE, SERUM 1.39 mg/dL (0.72-1.25)
--- NOTE | 2019-08-23 11:15 | NUR ---
Removed midline at this time from right upper arm. Pressure held and pressure dressing applied. Patient monitored and no bleeding noted. Tip intact
--- NOTE | 2019-08-23 17:59 | Diagnostic Imaging Report ---
Abdomen and Pelvis CTA with RUNOFF PROTOCOL WITH AND WITHOUT IV CONTRAST. INDICATION: Peripheral vascular disease COMPARISON: 05/01/2019 TECHNIQUE: Abdomen and pelvis and lower extremities were scanned utilizing a multidetector helical scanner from the lung base to the toes before and after administration of IV contrast. Coronal and sagittal reformations were obtained. 3D post-processing of the images was performed, and the post-processed images were used in interpretation. CTA runoff protocol was performed. IV CONTRAST: 100mL of Isovue 370 DOSE REDUCTION: The examination was performed according to departmental dose-optimization program which includes automated exposure control, adjustment of the mA and/or kV according to patient size and/or use of iterative reconstruction technique. FINDINGS: VESSELS: There is no evidence of aortic dissection. There is unchanged 3.7 x 4 cm infrarenal abdominal aortic aneurysm. 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 Ectasia of the left external iliac artery measuring up to 1.6 cm in diameter. Mural is noted in the distal abdominal aorta above the aortic bifurcation. Unchanged from the prior examination. The celiac artery, superior mesenteric artery, and inferior mesenteric artery are patent. Patent bilateral single renal arteries. Right lower extremity: The proximal superficial femoral artery is patent. The deep femoral artery is patent. Calcified plaque in the mid SFA results in mild narrowing. A focal atherosclerotic plaques mildly narrowed the popliteal artery. The tibioperoneal trunk is poorly opacified. Scattered atherosclerotic plaques are noted along the course of the anterior tibial, posterior tibial, and peroneal arteries. No comment about runoff to the foot can be made secondary to poor contrast opacification. Left lower extremity: The proximal left superficial femoral artery is patent. Multifocal calcified plaques in the mid SFA resulting in mild stenosis. The left popliteal artery is mildly narrowed distally. The tibioperoneal trunk is not opacified with contrast. Atherosclerotic vascular calcifications are noted along the course of the left anterior tibial and peroneal arteries. No comment about runoff to the foot can be made secondary to poor contrast opacification. NON-VASCULAR: LOWER THORAX: The lung bases are clear. HEPATOBILIARY: No focal hepatic lesions are identified. The gallbladder is present and nondistended. No intrahepatic or extra hepatobiliary ductal dilatation. SPLEEN: No splenomegaly. PANCREAS: No focal masses or ductal dilatation. ADRENALS: The suspicious adrenal nodules KIDNEYS/URETERS: There is no hydroureteronephrosis bilaterally. Bilateral renal cysts are unchanged. PELVIC ORGANS/BLADDER: Unremarkable. PERITONEUM / RETROPERITONEUM: No free air or fluid. LYMPH NODES: No lymphadenopathy. GI TRACT: The stomach, small, and large bowel are nondistended. There is no evidence of obstruction. No bowel wall thickening is appreciated. There is colonic diverticulosis without evidence of acute diverticulitis. BONES AND SOFT TISSUES: No acute osseous abnormalities are identified. IMPRESSION: 1. Unchanged infrarenal abdominal aortic aneurysm measuring 3.7 x 4.0 cm in maximum diameter. 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 Ectatic left common iliac artery is also unchanged measuring 1.6 cm in diameter. 2. Multifocal atherosclerotic disease of the lower extremity. The right superficial femoral artery is moderately narrowed similar to previous examination. There is mild narrowing of the right popliteal artery. The right calf arteries are not well opacified with contrast limiting evaluation of the run off vessels. 3. Multifocal atherosclerotic disease of the left lower extremity. Multifocal narrowing of the left mid SFA is present which results in moderate stenosis. The left calf arteries are not well opacified with contrast limits evaluation of run off vesicles. Signed by: Roque Swanson MD on 08/23/2019 5:56 PM
== END ==
LOC: CT 07:31
PROVIDERS: ATTEND Internal Medicine Cardiovascular Disease
DX: I25.110 Atherosclerotic heart disease of native coronary artery with unstable angina pectoris (principal); I70.213 Atherosclerosis of native arteries of extremities with intermittent claudication, bilateral legs; I71.9 Aortic aneurysm of unspecified site, without rupture; R09.89 Other specified symptoms and signs involving the circulatory and respiratory systems
CPT/HCPCS: 36415; 36569; 75635; 82565; 84520; J7050; Q9967; 36568